=== PATIENT | female | born 1990 | race Two or more races ===

== ENCOUNTER 2016-10-13 21:51 | Emergency (ER) | payer OTHER ==
[~2016-10-13 21:51] MED LIST: PERCOCET5/325 PO
== END 2016-10-14 01:01 | disposition home or self-care (01) ==
LOC: CFTX 21:51 → CED 21:51 → CFTX 23:42
DX: H01.001 Unspecified blepharitis right upper eyelid (principal); Z79.899 Other long term (current) drug therapy
CPT/HCPCS: 99283